=== PATIENT | female | born 1945 | race Caucasian/White ===

== ENCOUNTER 2025-06-14 14:31 | Emergency (ER) | payer MEDICARE, SELFPAY ==
[2025-06-14] VITALS (9 sets, daily range): BP systolic 131–203; BP diastolic 90–124; PULSE 85–117; RESP 16–18; TEMP 36.6–36.7; O2SAT 95–99; BMI 27.2
--- NOTE | 2025-06-14 15:12 | ED_ITS ---
Discharge Plan Disposition Patient Disposition: Home, Self-Care Referrals Follow up/Referrals: Mohini Marcum [Primary Care Provider, Medical] - See instructions Activity Restrictions/Add. Instructions Additional Instructions/Restrictions: Follow-up with your primary care physician if symptoms continue as this could be from restless leg syndrome. I also encourage you to follow with your primary care physician as your blood pressure has been elevated on today's visit. If you develop any new or worsening symptoms, or if you become concerned for your health for any reason, return to the emergency department for evaluation Clinical Impressions Clinical Impression: Pain of left calf Print Language Print Language: Telugu Discharge ED Provider: Amadou Molina General Adult HPI General Chief complaint: Extremity Problem,Nontraumatic Stated complaint: pain in left calf Time Seen by Provider: 06/14/25 15:01 Mode of Arrival: Ambulatory Source of Information: Patient Description of Symptoms (Recalled from ER Triage Doc. by RN): pt c/o left calf pain intermittently. states it doesnt hurt right now. but she is afrad it will start hurting again. has been going on for a week History of Present Illness HPI narrative: Raisa Dobbs is an 79F with a history of diabetes mellitus, HTN, and A-fib on Eliquis for 6 months who presents to the emergency department for complaints of intermittent left calf pain. Patient states over the last week, she has had what she describes as a charley horse in her left leg. She states that she has been taking Tylenol and ibuprofen for symptoms and states that last night was her first night that she was able to sleep. She denies any swelling, numbness or tingling. She states that sometimes the pain shoots down into her foot. She states that she recently got sunburn on that tran and still has a rash from that. She denies any history of blood clots. She states that she does not have any pain in the proximal leg. She has been able to ambulate. She is states that sometimes resting makes the pain better and sometimes walking makes the pain worse. Related Data Allergies Allergy/AdvReac Type Severity Reaction Status Date / Time No Known Allergies Allergy Verified 06/14/25 15:03 [facility] Disclaimer: The information contained in this section may have been updated after the patient was seen, as this information can be updated by other users. Social History Smoking Status: Never smoker alcohol intake: never current occupational status: previously employed Travel in the last 8 weeks?: None ROS Obtained: Yes Systems reviewed as appropriate & no additional complaints except as documented Physical Exam General General appearance: alert and in no apparent distress Head Head exam: atraumatic Eye Eye exam: Present normal appearance ENT ENT exam: Present normal external ear exam Neck Neck exam: Present full ROM Chest Chest inspection: Present symmetric chest wall rise Respiratory Respiratory exam: Present normal lung sounds bilaterally; Absent respiratory distress Cardiovascular Cardiovascular exam: Present regular rate and normal rhythm Abdominal Exam Abdominal exam: Present soft; Absent tenderness or guarding Extremities Exam Extremities exam: Present normal inspection Expanded Lower Extremity Exam Left: Comment: Left lower extremity: No tenderness in the calf. Negative Homans' sign. 2+ DP and PT pulses. Full strength and sensation with dorsi and plantarflexion and at the knee. No swelling. Mild erythema to the anterior tran consistent with mild sunburn. No other skin findings noted. Back Exam Back exam: Present normal inspection Neurological Exam Neurological exam: Present alert and oriented X3 Psychiatric Psychiatric exam: Present normal affect Skin Skin exam: Present warm and dry Medical Decision Making Medical Records Screening: Per USPSTF and CDC recommendations, given the prevalence of disease in our region, it is our hospital?s policy to screen for HIV and viral Hepatitis for all patients aged 18 and over and those with ongoing risk factors. Cristofer Inquiry Pt receiving controlled substance: No Vital Signs: 06/14/25 14:40 06/14/25 14:42 06/14/25 14:58 Temperature 97.9 F Temperature Source Oral Pulse Rate 116 H 117 H Pulse Rate [Right] 92 H Respiratory Rate 16 Blood Pressure 203/97 H 131/90 Blood Pressure [Right Arm] 131/90 Blood Pressure Mean [Right Arm] 103 02 Sat by Pulse Oximetry 97 99 97 Oxygen Delivery Method 06/14/25 15:00 06/14/25 16:25 06/14/25 16:30 Temperature Temperature Source Pulse Rate 101 H 85 89 Pulse Rate [Right] Respiratory Rate Blood Pressure 195/105 H 168/94 H 163/107 H Blood Pressure [Right Arm] Blood Pressure Mean [Right Arm] 02 Sat by Pulse Oximetry 98 98 95 Oxygen Delivery Method Room Air 06/14/25 17:01 06/14/25 17:30 Temperature Temperature Source Pulse Rate 91 H 89 Pulse Rate [Right] Respiratory Rate Blood Pressure 174/95 H 198/124 H Blood Pressure [Right Arm] Blood Pressure Mean [Right Arm] 02 Sat by Pulse Oximetry 97 98 Oxygen Delivery Method Lab Data Lab Results 06/14/25 16:14: WBC 5.0, RBC 4.51, Hgb 12.7, Hct 39.7, MCV 88.0, MCH 28.2, MCHC 32.0, RDW 13.4, Plt Count 185, MPV 10.0, Neut % (Auto) 61.3, Lymph % (Auto) 24.4, Collin % (Auto) 10.7 H, Eos % (Auto) 2.8, Baso % (Auto) 0.6, Neut # (Auto) 3.0, Lymph # (Auto) 1.2, Collin # (Auto) 0.5, Eos # (Auto) 0.1, Baso # (Auto) 0.0, D-Dimer 0.72 H, Sodium 140, Potassium 4.2, Chloride 106, Carbon Dioxide 26, Anion Gap 12.2, BUN 19 H, Creatinine 0.90, Estimated Creat Clear 43, Estimated GFR 60, Est GFR ( Amer) 73, Glucose 111 H, Calcium 9.6, Magnesium 1.7, Total Bilirubin 0.4, AST 40 H, ALT 33, Alkaline Phosphatase 93, Total Creatine Kinase 25 L, Total Protein 7.4, Albumin 4.3, Globulin 3.1, Albumin/Globulin Ratio 1.4 06/14/25 16:14 06/14/25 16:14 Orders (Tests/Meds): ORDERS Category Date Time Status POCUS Point of Care (ER Only) Stat Exams 06/14/25 15:10 Taken CBC w/Auto Diff [Complete Blood Count Auto Diff] Stat Lab 06/14/25 16:14 Completed CK [Creatine Kinase] Stat Lab 06/14/25 16:14 Completed CMP [Comprehensive Metabolic Panel] Stat Lab 06/14/25 16:14 Completed D-Dimer Stat Lab 06/14/25 16:14 Completed Magnesium Stat Lab 06/14/25 16:14 Completed Medical Decision Narrative: Raisa Dobbs is an 79F with a history of diabetes mellitus and A-fib on Eliquis for 6 months who presents to the emergency department for complaints of intermittent left calf pain. Patient states over the last week, she has had what she describes as a charley horse in her left leg. She states that she has been taking Tylenol and ibuprofen for symptoms and states that last night was her first night that she was able to sleep. She denies any swelling, numbness or tingling. She states that sometimes the pain shoots down into her foot. She states that she recently got sunburn on that tran and still has a rash from that. She denies any history of blood clots. She states that she does not have any pain in the proximal leg. She has been able to ambulate. She is states that sometimes resting makes the pain better and sometimes walking makes the pain worse. On arrival, patient is hypertensive but hemodynamically stable, in no acute distress. Afebrile. Physical exam, stated above, reveals an overall well-appearing female who is lying comfortably in the bed. She has no swelling appreciated the left lower extremity. 2+ DP and PT pulses. She has mild area of erythema to the anterior left tran but negative Homans' sign but no other skin changes. Full strength and sensation to the distal left lower extremity from the knee down. She does not have any chest pain or shortness of breath and cardiopulmonary exam is unremarkable. Differential diagnosis includes, but is not limited to: DVT, electrolyte derangement, muscle cramp, restless leg syndrome, rhabdomyolysis, myositis, low concern for peripheral arterial disease given unilateral nature of the patient's symptoms and adequate pulses without consistent worsening with ambulation. CTA with runoff was considered, however is felt that this would be of low utility at this time due to low clinical concern. Workup in the emergency room included: [id number] DVT ultrasound, CBC, CMP, magnesium level, CK, D-dimer [id number] DVT ultrasound was negative for any DVT. Laboratory workup showed unremarkable CBC, D-dimer 0.72 but negative based on age adjustment. Potassium, sodium within normal limits. No RIANA. BUN mildly elevated at 19. Calcium normal at 9.6. Glucose normal at 111. Mildly elevated AST of 48 but liver enzymes otherwise within normal limits. CK normal at 25. Is felt that patient could have restless leg syndrome as she states her symptoms seem to be worsened at night given there is no acute pathology on today's visit and I recommend she follow with her primary care physician if symptoms continue. Return precautions were given. All questions were answered. She demonstrated understanding and was in agreement this plan. She was then discharged from the emergency department in stable condition. Procedures Limited Ultrasound Interpretation:: Indication: Limited compression ultrasonography of the left lower extremity was performed to evaluate for non-compressibility of the deep veins in the patient. The ultrasound was performed with the following indications, as noted in the H&P: Left calf pain Identified structures: Left common femoral vein, femoral vein, popliteal vein were examined. Findings: Lower Extremity: Left CFV: Good compressibility Left FV good compressibility Left Popliteal vein: Good compressibility Impression: Normal DVT ultrasound Images were saved to permanent archive The study was technically adequate CPT: 08565-38-AK This study was performed by me, and I personally interpreted all images/videos. Based on my clinical judgement, these images were adequate and did not necessitate further imaging. Critical Care Critical Care Time Critical Care Time: No
--- OUTSIDE RECORDS SUMMARY | 2025-06-14 15:14 | XMS_ITS | Encounter Summary ---
Author Organization Healthcare Address [address] [place] [address] Care Team Providers Care Cloth Covered Helmet Puller Name Role Phone Mohini Marcum MD Primary Care Provider [phone] Encounter Details Date Type Department Care Team (Late st Contact Info) Description 09/30/2024 Outside Procedure External Location [address] [place] [address] Marcos Hand MD [address] [place] [address] Social History Tobacco Use Types Packs/Day Years Used Date Smoking Tobacco: Never Smokeless Tobacco: Never Humiliation, Afraid, Rape, and Kick questionnair e Answer Date Recorded Within the last year, have y ou been afraid of your partner or ex-partner? No 09/11/2024 Within the last year, have y ou been humiliated or emotionally abused in other ways by your partner or ex-partner? No Within the last year, have y ou been kicked, hit, slapped, or otherwise physically hurt by your partner or ex-partner? No 09/11/2024 Within the last year, have y ou been raped or forced to have any kind of sexual activity by your partner or ex-partner? No 09/11/2024 Social Connection and Isolation Panel Answer Date Recorded In a typical week, how many times do you talk on the phone with family, friends, or neighbors? More than three times a week 07/13/2023 How often do you get togethe r with friends or relatives? Once a week 07/13/2023 How often do you attend chur ch or mu-ism services? More than 4 times per year 07/13/2023 Do you belong to any clubs o r organizations such as voodoo groups, unions, fraternal or athletic groups, or school groups? No 07/13/2023 How often do you attend meet ings of the clubs or organizations you belong to? Never 07/13/2023 Are you , , di vorced, , never , or living with a partner? 07/13/2023 AUDIT-C Answer Date Recorded Q1: How often do you have a drink containing alcohol? Never 07/13/2023 Q2: How many drinks containi ng alcohol do you have on a typical day when you are drinking? Patient does not drink Q3: How often do you have si x or more drinks on one occasion? Never 07/13/2023 Overall Financial Resource Strain (CARDIA) Answe r Date Recorded How hard is it for you to pa y for the very basics like food, housing, medical care, and heating? Not hard at all 07/13/2023 PHQ-2 Answer Date Recorded Patient Health Questionnaire-2 Score 0 09/11/2024 [facility] - Occupational Stress Questionnaire Answer Date Recorded Do you feel stress - tense, restless, nervous, or anxious, or unable to sleep at night because your mind is troubled all the time - these days? Only a little 07/13/2023 Exercise Vital Sign Answer Date Recorde d On average, how many days pe r week do you engage in moderate to strenuous exercise (like a brisk walk)? 5 days 07/13/2023 On average, how many minutes do you engage in exercise at this level? 150+ min 07/13/2023 Hunger Vital Sign Answer Date Recorded Within the past 12 months, y ou worried that your food would run out before you got the money to buy more. Never true 09/11/20 24 Within the past 12 months, t he food you bought just didn't last and you didn't have money to get more. Never true 09/11/2024 PRAPARE - Transportation Answer Date Re corded In the past 12 months, has l ack of transportation kept you from medical appointments or from getting medications? No 08/30 In the past 12 months, has l ack of transportation kept you from meetings, work, or from getting things needed for daily living? No 09/11/2024 Housing Stability Vital Sign Answer Alan e Recorded In the last 12 months, was t here a time when you were not able to pay the mortgage or rent on time? No 07/13/2023 In the last 12 months, how many places have you lived? 1 07/13/2023 In the last 12 months, was t here a time when you did not have a steady place to sleep or slept in a mcc (including now)? No 07/13/2023 PHQ-9 Answer Date Recorded Patient Health Questionnaire-9 Score 0 09/11/2024 Housing Stability Vital Sign Answer Alan e Recorded In the last 12 months, was t here a time when you were not able to pay the mortgage or rent on time? No 09/11/2024 Number of Times Moved in the Last Year Not on fi le 09/11/2024 At any time in the past [address] [facility], were you homeless or living in a mcc (including now)? No 09/11/2024 Utilities Answer Date Recorded In the past 12 months has th e electric, gas, oil, or water company threatened to shut off services in your home? No 09/11/2024 PHQ-2A Answer Date Recorded Patient Health Questionnaire-2 Score 0 07/26/2023 Comments Unknown Sex and Gender Information Value Date Recorded Sex Assigned at Not on file Legal Sex Female 7:33 PM EDT Gender Identity Not on file Sexual Orientation Not on file documented as of this encounter Plan of Treatment Not on file documented as of this encounter Procedures Procedure Name Priority Date/Time Associated Diagnosis Comments ECHO, ADULT TRANSTHORACIC COMPLETE W/ COLOR AND DOPPLER 09/30/2024 7:19 AM EST documented in this encounter Results * Echo, Adult Transthoracic Complete w/ Color and Doppler (09/30/2024 7:19 AM EST) Anatomical Region Laterality Modality Ultrasound 09/30/2024 7:19 AM EST Narrative 09/30/2024 5:17 [place] [address] Name: SHARON DOBBS Exam Date: 09/30/2024 : 1945 Age 78 years Gender: F Physician: MARCOS HAND Facility: [facility] Facility HSV: Outpatient Exam: ECHO W SPEC COLOR FLOW Reason for Study: Paroxysmal atrial fibrillation SUMMARY Normal LV size with normal function. The ejection fraction is 60-65%. Left ventricular filling cannot be assessed due to atrial fibrillation. Normal PA pressure (23 mmHg). INTERPRETATION DETAIL Good quality study. Left ventricle: The left ventricle is normal in size with normal systolic function. The ejection fraction is 60-65%. There is normal LV wall thickness. LV geometry is normal. The left ventricular wall motion is normal. The left ventricular filling pattern cannot be assessed due to atrial fibrillation. False chords are present. Left atrium: The left atrium is normal. LA volume: 38.8mL, LA volume index: 24.6mL/mA. Right ventricle: The right ventricle is normal in size with normal function. Right atrium: The right atrium is normal. Mitral valve: The mitral valve is normal. There is no mitral stenosis. There is trace to mild mitral regurgitation. Aortic valve: The aortic valve is normal and trileaflet. There is no aortic stenosis. There is no aortic regurgitation. Tricuspid valve: The tricuspid valve is normal. There is trace to mild tricuspid regurgitation. PASP= 23 mmHg, RAP=7mmHg. Pulmonic valve: The pulmonic valve is normal. Pericardium: The pericardium is normal. Pulmonary artery: The pulmonary artery is normal. Interatrial septum: The interatrial septum is normal. Aorta: The aorta is normal. The aortic root is normal. Aortic dimension - Ao M-mode= 2.80cm. Vena Cava: The inferior vena cava is normal. MEASUREMENTS Left Ventricle IVSd: 0.91cm (0.6-1.1cm) PWd: 0.98cm (0.6-1.1cm) Mass Aysha: 141g LVMI: 89g/mA(>50-95g/m) LVIDd: 4.49cm (3.7-5.6 cm) LVIDdI: 2.84cm/m2 LVIDs: 3.04cm (1.8-4.2 cm) LVIDsI: 1.92cm/m2 RWT: 0.44 (<0.42) Right Ventricle Mid RV Tiffanie: 2.2cm (2.7-3.3cm) Max Valve Velocities LVOT: 69.00cm/sec Pulmonary RAP: 7mmHg PASP: 23mmHg Legally authenticated by ZEYAD Pittman 2024-09-30 17:16:12 Atria LA AP: 3.4cm LA vol: 38.8mL TAMMY: 24.6mL/mA(16-28ml/m2) Marcos Hand MD Dictated By: MARCOS HAND Transcribed By: Transcribed On: 09/30/2024 5:16 PM Electronically signed by: MARCOS HAND 09/30/2024 Thank you for referring SHARON DOBBS to [facility]. Legally authenticated by ZEYAD Pittman 2024-09-30 17:16:12 Procedure Note Provider, [facility] 09/30/2024 [place] [address] Name: SHARON DOBBS Exam Date: 09/30/2024 : 1945 Age 78 years Gender: F Physician: MARCOS HAND Facility: [facility] Facility HSV: Outpatient Exam: ECHO W SPEC COLOR FLOW Reason for Study: Paroxysmal atrial fibrillation SUMMARY Normal LV size with normal function. The ejection fraction is 60-65%. Left ventricular filling cannot be assessed due to atrial fibrillation. Normal PA pressure (23 mmHg). INTERPRETATION DETAIL Good quality study. Left ventricle: The left ventricle is normal in size with normal systolic function. The ejection fraction is 60-65%. There is normal LV wall thickness. LV geometry is normal. The left ventricular wall motion is normal. The left ventricular filling pattern cannot be assessed due to atrial fibrillation. False chords are present. Left atrium: The left atrium is normal. LA volume: 38.8mL, LA volume index: 24.6mL/mA. Right ventricle: The right ventricle is normal in size with normal function. Right atrium: The right atrium is normal. Mitral valve: The mitral valve is normal. There is no mitral stenosis. There is trace to mild mitral regurgitation. Aortic valve: The aortic valve is normal and trileaflet. There is no aortic stenosis. There is no aortic regurgitation. Tricuspid valve: The tricuspid valve is normal. There is trace to mild tricuspid regurgitation. PASP= 23 mmHg, RAP=7mmHg. Pulmonic valve: The pulmonic valve is normal. Pericardium: The pericardium is normal. Pulmonary artery: The pulmonary artery is normal. Interatrial septum: The interatrial septum is normal. Aorta: The aorta is normal. The aortic root is normal. Aortic dimension - Ao M-mode= 2.80cm. Vena Cava: The inferior vena cava is normal. MEASUREMENTS Left Ventricle IVSd: 0.91cm (0.6-1.1cm) PWd: 0.98cm (0.6-1.1cm) Mass Aysha: 141g LVMI: 89g/mA(>50-95g/m) LVIDd: 4.49cm (3.7-5.6 cm) LVIDdI: 2.84cm/m2 LVIDs: 3.04cm (1.8-4.2 cm) LVIDsI: 1.92cm/m2 RWT: 0.44 (<0.42) Right Ventricle Mid RV Tiffanie: 2.2cm (2.7-3.3cm) Max Valve Velocities LVOT: 69.00cm/sec Pulmonary RAP: 7mmHg PASP: 23mmHg Legally authenticated by ZEYAD Pittman 2024-09-30 17:16:12 Atria LA AP: 3.4cm LA vol: 38.8mL TAMMY: 24.6mL/mA(16-28ml/m2) Marcos Hand MD Dictated By: MARCOS HAND Transcribed By: Transcribed On: 09/30/2024 5:16 PM Electronically signed by: MARCOS HAND 09/30/2024 Thank you for referring SHARON DOBBS to [facility]. Legally authenticated by ZEYAD Pittman 2024-09-30 17:16:12 us Marcos Hand MD CV ECHO PROCEDURES Final Resu lt documented in this encounter Visit Diagnoses Not on filedocumented in this encounter Additional Health Concerns Assessment Noted Time PHQ-9 Depression Total Score: 0 09/11/20 24 2:26 PM EST A fall risk assessment has been complete d for the patient 09/11/2024 2:27 PM EST A Body Mass Index follow-up plan has been documented for the patient 09/11/2024 3:31 PM EST documented as of this encounter Care Teams Cloth Covered Helmet Puller Relationship Specialty Start Date End Date Mohini Marcum MD [address] [place] [address] PCP - General 03/12/21 documented as of this encounter
--- OUTSIDE RECORDS SUMMARY | 2025-06-14 15:14 | XMS_ITS | Clinical Summary ---
Author Organization [facility] Address [address] [place] [address] Care Team Providers Care Clinic Lead Name Role Phone Mohini Marcum MD Primary Care Provider [phone] Allergies No known active allergies Medications aspirin 81 MG EC tablet TAKE 1 TABLET DAILY. 0 Active lansoprazole (Prevacid) [address] capsule TAKE ONE CAPSULE BY MOUTH DAILY 0 Active cholecalciferol (Vitamin D, Cholecalciferol,) 25 MCG (1000 UT) tablet Take by mouth 1 (one) time each day. Active Calcium Carb-Cholecalcife rol (CALCIUM 1000 + D PO) Take by mouth. Activ e lisinopril 5 MG tabletIndications :Primary hypertension Take 1 tablet by mouth once daily 90 tablet 4 Active metoprolol succinate XL (Toprol-XL) 25 MG 24 hr tabletIndications :Primary hypertension Take 1 tablet (25 mg) by mouth 1 (one) time each day. 90 tablet 4 Active metFORMIN XR (Glucophage-XR) 500 MG 24 hr tabletIndications :Diabetes mellitus type 2, noninsulin dependent (CMS/HCC) TAKE 1 TABLET BY MOUTH ONCE DAILY WITH BREAKFAST -Do not crush, chew or split. 90 tablet 2 4 Active citalopram (CeleXA) 20 MG tabletIndications :Generalized anxiety disorder Take 1 tablet (20 mg) by mouth 1 (one) time each day. 90 tablet 2 4 Active atorvastatin (Lipitor) 10 MG tabletIndications :Primary hypertension,Diab etes mellitus type 2, noninsulin dependent (CMS/HCC) Take 1 tablet (10 mg) by mouth 1 (one) time each day. as directed 90 tablet 2 4 Active Active Problems Problem Noted Date Diagnosed Date Atrial fibrillation 09/11/2024 Osteopenia 03/17/2016 Diabetes mellitus type 2, noninsulin dependent 0 01/24/2015 Generalized anxiety disorder 01/24/2015 HTN (hypertension) 01/24/2015 Hyperlipidemia 01/24/2015 Immunizations Immunization Administration Dates Next Due Hep A, Adult 09/11/2018 Influenza, high-dose, quadrivalent 07/19,07/29/2021,07/09/2020,2018,08/25/2017 Influenza, seasonal, injectable 07/05/2023 Moderna COVID-19 Vaccine (Re d Cap) 12+ years 09/03/2021,01/01/2021,11/27/2020 Pneumococcal Conjugate PCV 13 03/09/2016 Tdap 03/09/2016 Social History Tobacco Use Types Packs/Day Years Used Date Smoking Tobacco: Never Smokeless Tobacco: Never Tobacco Cessation:Counseling Given: Not Answered Humiliation, Afraid, Rape, and Kick questionnair e [...] week 07/13/2023 How often do you attend [facility] or holiness services? More than 4 times per year 07/13/2023 Do you belong to any clubs o r organizations such as restorationist groups, unions, fraternal or athletic groups, or [...] Recorded Patient Health Questionnaire-2 Score 0 09/11/2024 [facility] - Occupational Stress Questionnaire Answer Date Recorded [...] place to sleep or slept in a fpc (including now)? No 07/13/2023 PHQ-9 Answer Date [...] any time in the past [address] [facility], were you homeless or living in a fpc (including now)? No 09/11/2024 Utilities Answer Date Recorded In the past 12 months has e [employer], gas, oil, or water company threatened to shut off services in your home? No 09/11/2024 PHQ-2A Answer Date Recorded Patient Health Questionnaire-2 Score 0 07/26/2023 Comments Unknown Sex and Gender Information Value Date Recorded Sex Assigned at Not on file Legal Sex Female 7:33 PM EDT Gender Identity Not on file Sexual Orientation Not on file Last Filed Vital Signs Vital Sign Reading Time Taken Comments Blood Pressure 125/85 09/11/2024 2:22 PM EST Pulse 82 09/11/2024 2:22 PM EST Temperature 36.8 C (98.3 F) 09/11/2024 2:22 PM EST Respiratory Rate 14 06/06/2019 8:38 AM EDT Oxygen Saturation 96% 09/11/2024 2:22 PM EST Inhaled Oxygen Concentration - - Weight 60.6 kg (133 lb 8 oz) 09/11/2024 2:22 PM EST Height 149.9 cm (4' 11 ) 09/11/2024 2:22 PM EST Body Mass Index 26.96 09/11/2024 2:22 PM EST Plan of Treatment Health Maintenance Due Date Last Done Comments [facility]-Bone Density Scan 1945 [facility]-Infant/Child/Adol SDOH Screenings 1945 Diabetes: Dental Exam 1953 [facility]-Zoster Vaccines (1 of 2) 1993 [id number] Vaccine ( season) 2025 08/08/2024, 08/18/2022, 09/03/2021, Additional history exists [facility]- SDOH Screenings 03/11/2025 [facility]-Adult SDOH Screenings 03/11/2025 09/11/2024 [facility]-Diabetes: Hemoglobin A1C 03/11/2025 09/11/2024, 07/26/2023, 11/01/2021, Additional history exists [facility]-Influenza Vaccine (#1) 06/30/202507/09, 07/05/2023, 07/19/2022, Additional history exists [facility]-Depression Screening 09/11/2025 09/11/2024, 08/30 [facility]-Medicare Annual Wellness (AWV) 09/11/2025 09/11/2024, 07/26/2023 [facility]-DTaP,Tdap,and Td Vaccines (2 - Td or Tdap) 03/09/2026 03/09/2016 [facility]-Hepatitis A Vaccines Aged Out 09/11/2018 No longer eligible based on patient's age to complete this topic [facility]-Pneumococcal Vaccine: 50+ Years Completed 07/25/2023, 03/09/2016 [facility]-RSV Vaccine: 60+ Years or Completed 08/08/2024 [facility]-Obesity Intervention Completed 024, 07/26/2023, 11/01/2021, Additional history exists HPV Vaccines Aged Out No longer eligi ble based on patient's age to complete this topic [facility]-HIB Vaccines Aged Out No longer e ligible based on patient's age to complete this topic [facility]-IPV Vaccines Aged Out No longer e ligible based on patient's age to complete this topic [facility]-Rotavirus Vaccines Aged Out No lo nger eligible based on patient's age to complete this topic Procedures Procedure Name Priority Date/Time Associated Diagnosis Comments HEMOGLOBIN A1C Routine 09/11/2024 3:07 PM EST Routine general medical examination at health care facility Primary hypertension Diabetes mellitus type 2, noninsulin dependent (CMS/HCC) from Last 3 Months or Most Recently Relevant to Health Maintenance Results * (ABNORMAL) Hemoglobin A1c (09/11/2024 3:07 PM EST) Hemoglobin A1c 6.6(H) <5.7 % 09/11/2024 6:57 PM EST [facility] Blood Venous blood specimen / Unknown Venipuncture / Unknown 09/11/2024 3:07 PM EST 09/11/2024 3:07 PM EST Narrative [facility] - 09/11/2024 6:57 PM EST HA1C Interpretive Data: Diagnosis of Diabetes: Diabetic > or = 6.5% Pre-diabetic 5.7 to 6.4% Non-diabetic < or = 5.6% Glycemic Targets for Type I and Type II Diabetics: Non- Adults <7.0% Adults <6.0% Children and Adolescents <7.5% Source: [place] [employer]. Standards of medical care in diabetes,2017. Diabetes Care.2017:40 (suppl 1):S1-S135. HbA1c assay performed by an ion-exchange chromatography method that is certified traceable to the DCCT. Mohini Marcum MD LAB BLOOD ORDERABLES Final Re sult [facility] [address] [place] [address] from Last 3 Months or Most Recently Relevant to Health Maintenance Insurance [facility] Care Teams Clinic Lead Relationship Specialty Start Date End Date Mohini Marcum MD [address] [place] [phone] PCP - General 03/12/21
[2025-06-14 16:26] LABS: Hematocrit 39.7 % (37.0-47.0); Hemoglobin 12.7 g/dL (12.2-16.2); Immature Granulocytes % 0.2 %; Mean Corpuscular HGB Conc 32.0 g/dL (31.8-35.4); Mean Corpuscular Hemoglobin 28.2 pg (27.0-31.2); Mean Corpuscular Volume 88.0 fl (81-99); Nucleated Red Blood Cells % 0 %; Platelet Count 185 K/mm3 (142-424); Red Blood Count 4.51 M/mm3 (4.20-5.40); Red Cell Distribution Width-SD 43.6 fL; White Blood Count 5.0 K/mm3 (4.8-10.8)
[2025-06-14 16:31] LABS: Alanine Aminotransferase 33 U/L (12-78); Albumin Level 4.3 g/dl (3.5-5.0); Albumin/Globulin Ratio 1.4 (1.1-1.8); Alkaline Phosphatase 93 U/L (38-126); Anion Gap 12.2 mEq/L (5-15); Aspartate Amino Transferase 40 U/L (14-36); Bilirubin,Total 0.4 mg/dl (0.2-1.3); Blood Urea Nitrogen 19 mg/dl (7-17); Calcium 9.6 mg/dl (8.4-10.2); Carbon Dioxide 26 mmol/L (22.0-30.0); Chloride 106 mmol/L (98-107); Creatine Kinase 25 U/L (30-135); Creatinine Clearance Estimated 43 mL/min (50-200); Creatinine,Serum 0.90 mg/dl (0.52-1.04); Estimated Glomerular Filt Rate 60 ml/min (>60); GFR (African American) 73 ML/MIN (>60); Globulin 3.1 g/dL (1.3-3.2); Glucose 111 mg/dl (74-100); Magnesium 1.7 mg/dl (1.6-2.3); Potassium 4.2 mmoL/L (3.5-5.1); Sodium 140 mmol/L (136-145); Total Protein,Serum 7.4 g/dl (6.3-8.2)
[2025-06-14 16:35] LABS: D-Dimer 0.72 ug/mL (0.0-0.5)
== END 2025-06-14 17:50 | disposition home or self-care (01) ==
PROVIDERS: Emergency Provider Student in an Organized Health Care Education/Training Program; PCP Family Medicine
DX: M79.662 Pain in left lower leg (principal)
CPT/HCPCS: 80053; 82550; 83735; 85025; 85378; 99283